=== PATIENT | male | born 1955 | race Caucasian/White ===

== ENCOUNTER → 2017-05-01 | Day surgery (SDC) | payer OTHER ==
[~2017-05-01] VITALS: Ht 180.3 cm; Wt 80.7 kg
[~2017-05-01] MED LIST: ALBU8.5H2 INHALATION; ASPI-973 PO; BECL8.7A5 INHALATION; CIPR-198 PO; FLUT16SP NS; Sodium Chloride LOK Flush 10 mL Syringe IV PRN; fentaNYL-PF 50 mCg/mL 2 mL Inj IVPUSH PRN
[2017-05-01 09:28] VITALS: BP 128/82; PULSE 69; RESP 16; O2SAT 99
[2017-05-01] MEDS: 0.9% Sodium Chloride 1,000 ML IV PRN ×3 (09:34→10:44)
--- NOTE | 2017-05-01 10:54 | PCM.ENDCOL ---
Colonoscopy Date of Service: May 01, 2017 Physician Chon Navarro MD Pre Procedure Diagnosis: Screening personal history of polyp Post Procedure Dx & Findings: Polyp hemorrhoids diverticulosis Procedure Colonoscopy PROCEDURE IN DETAIL: Prep adequate Withdrawal time 13 minutes After unremarkable rectal examination the Olympus video colonoscope was inserted patient's anal canal and was advanced to cecum. Landmarks were identified including the ileocecal valve and appendiceal orifice. Scope was withdrawn systematically. Visualized colonic mucosa showed healthy shiny mucosa with normal healthy-appearing vasculature. In the cecum there was a 1 mm polyp which was removed completely using cold forceps. In the sigmoid colon there a few small diverticuli. In the rectum retroflexion was done which showed hemorrhoids. Anal canal was inspected carefully on the way out and hemorrhoids noted. Impression Polyp 1 as well as complete removal Diverticuli Hemorrhoids Recommendation Repeat colonoscopy 5 years Diverticular diet Presedation Assessment Risks and Benefits Informed consent was obtained from the patient after all risks and benefits including but not limited to drug reaction, infection, pain, bleeding, perforation, as well as alternatives were discussed. Patient monitoring Continuous pulse oximetry, cardiac monitoring, blood pressure monitoring, IV access, and oxygen at 2L per nasal cannula. Periprocedural Fentanyl: Fentanyl 125mcg Incrementally Midazolam: Midazolam 6mg Incrementally Complications There were no periprocedural complications identified. Post Procedure Plan Post Procedure Recommendations 1. Restrict activities today. 2. Resume normal activities in the morning. 3. Resume medications. 4. Patient informed of normal post procedure side effects as bloating, drowsiness, blood streaking in the stool. 5. average risk CRCS. If colon polyps come back as: -Hyperplastic- can repeat colonoscopy in 10 years -Tubular adenoma- repeat colonoscopy in 5 years -Tubulovillous/villous adenoma- repeat colonoscopy in 3 years -If any dysplasia- return to clinic as soon as possible 6. Please don't hesitate to call me with any questions. Chon Navarro MD May 01, 2017 10:54
[2017-05-01 10:56] VITALS: BP 111/75; PULSE 66; O2SAT 98
[2017-05-01 11:06] VITALS: BP 115/62; PULSE 69; O2SAT 99
--- NOTE | 2017-05-02 15:06 | PATH ---
SURGICAL PATHOLOGY Attending Physician:Chon Navarro M.D. CASE STATUS: Signed Out PATIENT NAME: MELVIN WALKER PID: [id number] : 1955 DATE COLLECTED:05/01/2017 16:36 SPECIMEN: Colon, Polyp CLINICAL HISTORY: 1). CECUM POLYP FINAL DIAGNOSIS: 1.CECUM POLYP, BIOPSY: TUBULAR ADENOMA IN 2 OF 2 FRAGMENTS. ICD10 D12.6 GROSS DESCRIPTION: The specimen is received in one formalin filled container labeled with the patient's name, sublabeled "cecum polyp" and consists of 2 portions of tissue which aggregate to 0.1 x 0.1 x 0.1 CM. The specimen is entirely submitted in one cassette. 05/01/2017DC MICRO DESCRIPTION: See diagnosis. ICD-9 CODES: CPT CODES: 1: 55530 Electronically Signed Out Klaus rBennan MD [facility] Pathology [facility] [address], [place] [address] Technical component performed at [facility], [facility] [address], [place], [address]
== END | disposition home or self-care (01) ==
LOC: END 00:06
PROVIDERS: ATTEND Internal Medicine
DX: Z12.11 Encounter for screening for malignant neoplasm of colon (principal); D12.0 Benign neoplasm of cecum; K57.30 Diverticulosis of large intestine without perforation or abscess without bleeding; K64.8 Other hemorrhoids; Z86.010 Personal history of colon polyps; J45.909 Unspecified asthma, uncomplicated; F32.9 Major depressive disorder, single episode, unspecified; Z79.51 Long term (current) use of inhaled steroids
CPT/HCPCS: 45380; 99153; G0500; J2250; J3010; J7030